=== PATIENT | male | born 1970 | race Caucasian/White ===

== ENCOUNTER 2017-06-13 14:45 | Emergency (ER) | payer OTHER ==
[~2017-06-13] VITALS: Ht 175.3 cm; Wt 99.8 kg
[2017-06-13 17:24] LABS: ABSOLUTE BASOPHIL COUNT 0 /CUMM (0.0-0.2); ABSOLUTE EOSINOPHIL COUNT 0.1 /CUMM (0.0-0.7); ABSOLUTE LYMPH COUNT 2.5 /CUMM (1.2-3.4); ABSOLUTE MONOCYTE COUNT 0.4 /CUMM (0.10-0.60); BASOPHIL % 0.5 % (0.0-2.0); EOSINOPHIL % 1.3 % (0-5); GRANULOCYTE % 65.8 % (42.2-75.2); HEMATOCRIT 47.3 % (42-52); MEAN CORPUSCULAR HGB 29.3 PG (27.0-31.0); MEAN CORPUSCULAR HGB CONC 33.4 G/DL (33.0-37.0); MEAN CORPUSCULAR VOLUME 87.6 FL (80.0-94.0); MEAN PLATELET VOLUME 8.5 FL (7.4-10.4); PLATELET COUNT 243 /CUMM (130-400); RBC DISTRIBUTION WIDTH 13.6 % (11.5-14.5); RED BLOOD CELL CT 5.41 /CUMM (4.70-6.10); WHITE BLOOD CELL COUNT 9.1 /CUMM (4.8-10.8)
[2017-06-13 17:32] LABS: PTT 28 SEC (25-37)
--- NOTE | 2017-06-13 18:30 | RADIOLOGY REPORT ---
EXAMINATION: XR CHEST CLINICAL INFORMATION: Chest tightness. COMPARISON: Chest radiograph 06/05/2013. TECHNIQUE: 2 views of the chest were obtained. FINDINGS: Lung volumes are low. No focal consolidative disease, pleural effusion, or pneumothorax. The cardiac silhouette and upper mediastinal contours are normal. No acute osseous finding. IMPRESSION: Low lung volumes. Otherwise unremarkable examination. No consolidative disease or effusion.
--- NOTE | 2017-06-13 20:00 | ED CARDIAC/CP/PALPITATIONS ---
History of Present Illness General Chief Complaint: Chest Pain Stated Complaint: CHEST TIGHTNESS W/ NUMBNESS/TINGLING TO LEFT HAND Source: patient Exam Limitations: no limitations Vital Signs & Intake/Output Vital Signs & Intake/Output Vital Signs Date Time Temp Pulse Resp B/P B/P Pulse O2 O2 Flow FiO2 Mean Ox Delivery Rate 06/13 2104 98.4 83 18 148/87 98 Room Air 06/13 2052 Room Air 06/13 1454 98.7 80 20 157/92 99 Room Air Allergies Coded Allergies: NO KNOWN ALLERGIES (06/05/13) Reconcile Medications No Known Home Medications Triage Note: PT STATES HIS LEFT HAND FELT KENISHA ALL DAY. HE LAYED DOWN FOR A WHILE AND WHEN HE GOT UP HE FELT A PAIN IN NECK AND HIS CHEST GOT TIGHT AND THE TINGLING GOT WORSE IN HIS HAND Triage Nurses Notes Reviewed? yes Onset: Abrupt Duration: hour(s):, constant, continues in ED Timing: recent history Quality/Severity: moderate Radiation: shoulders Activities at Onset: none HPI: 47-year-old male comes into the emergency room for further evaluation of some left-sided neck pain that radiates down to his left hand with some associated tingling. He reports that he woke up with it from his sleep. He denies any chest pain or shortness of breath. He reports that the symptoms have improved and resolved by time he hears the emergency room. Currently denies any chest pain or shortness of breath. Denies any prior cardiac history. He reports that he has a history of hypertension and hyperlipidemia. His father and grandfather had MIs in their 60s. (Tanner Neely) Past History Travel History Traveled to [place] past 21 day No Medical History Any Pertinent Medical History? see below for history Cardiovascular: hypertension, hyperlipidemia Renal: KIDNEY STONES Surgical History Surgical History: none Psychosocial History What is your primary language Iranian Tobacco Use: Never used ETOH Use: occasional use Illicit Drug Use: denies illicit drug use Family History Hx Contributory? No (Tanner Neely) Review of Systems Review of Systems Constitutional: Reports: no symptoms. EENTM: Reports: no symptoms. Respiratory: Reports: no symptoms. Cardiovascular: Reports: no symptoms. GI: Reports: no symptoms. Genitourinary: Reports: no symptoms. Musculoskeletal: Reports: see HPI. Skin: Reports: no symptoms. Neurological/Psychological: Reports: see HPI. Hematologic/Endocrine: Reports: no symptoms. Immunologic/Allergic: Reports: no symptoms. All Other Systems: Reviewed and Negative (Tanner Neely) Physical Exam Physical Exam General Appearance: well developed/nourished, no apparent distress, alert, awake Head: atraumatic, normal appearance Eyes: Bilateral: normal appearance, EOMI. Ears, Nose, Throat: normal ENT inspection, hearing grossly normal Neck: normal inspection, supple, full range of motion Respiratory: normal breath sounds, no respiratory distress Cardiovascular: regular rate/rhythm Gastrointestinal: soft, non-tender Back: normal inspection Extremities: normal inspection Neurologic/Psych: awake, alert, oriented x 3, normal gait, normal mood/affect Skin: intact, normal color Core Measures ACS in differential dx? Yes CVA/TIA Diagnosis No Sepsis Present: No Sepsis Focused Exam Completed? No (Tanner Neely) Progress Differential Diagnosis: AMI, aortic dissection, costochondritis, hyperthyroid, musculoskeletal pain, pancreatitis, pericarditis, pneumonia, pneumothorax, pulmonary embolism, PUD/GERD, respiratory failure, rib fracture, unstable angina Plan of Care: Orders Procedure Date/time Status TROPONIN LEVEL 06/13 2014 Complete EKG 06/13 2014 Active TROPONIN LEVEL 06/13 1501 Complete PARTIAL THROMBOPLASTIN TIME 06/13 1501 Complete PROTHROMBIN TIME 06/13 1501 Complete COMPREHENSIVE METABOLIC PANEL 06/13 1501 Complete CHOLESTEROL 06/13 1501 Complete CBC WITHOUT DIFFERENTIAL 06/13 1501 Complete B-TYPE NATRIURETIC PEP (BNP) 06/13 1501 Complete EKG 06/13 1446 Active Laboratory Tests 06/13/17 2018: Troponin I < 0.01 06/13/17 1711: Anion Gap 12, Estimated GFR > 60, BUN/Creatinine Ratio 15.0, Glucose 94, Calcium 10.1, Total Bilirubin 0.6, AST 29, ALT 94 H, Alkaline Phosphatase 82, Troponin I < 0.01, Uau-G-Riksstfdhat Pept 14.3, Total Protein 8.4 H, Albumin 4.7, Globulin 3.7, Albumin/Globulin Ratio 1.3, Cholesterol 236 H, PT 11.0, INR 1.05, APTT 28, CBC w Diff NO MAN DIFF REQ, RBC 5.41, MCV 87.6, MCH 29.3, MCHC 33.4, RDW 13.6, MPV 8.5, Gran % 65.8, Lymphocytes % 27.5, Monocytes % 4.9, Eosinophils % 1.3, Basophils % 0.5, Absolute Granulocytes 6.0, Absolute Lymphocytes 2.5, Absolute Monocytes 0.4, Absolute Eosinophils 0.1, Absolute Basophils 0 Diagnostic Imaging: Viewed by Me: Radiology Read. Discussed w/RAD: Radiology Read. Radiology Impression: PATIENT: JUAN CRAIN PRESENT AGE: 47 PATIENT ACCOUNT NO: [id number] : 71 LOCATION: [facility] ORDERING PHYSICIAN: Tanner LEE SERVICE DATE: 06/13/17 EXAM TYPE : RAD - XRY-CHEST XRAY, TWO VIEWS EXAMINATION: XR CHEST CLINICAL INFORMATION: Chest tightness. COMPARISON: Chest radiograph 06/05/2013. TECHNIQUE: 2 views of the chest were obtained. FINDINGS: Lung volumes are low. No focal consolidative disease, pleural effusion, or pneumothorax. The cardiac silhouette and upper mediastinal contours are normal. No acute osseous finding. IMPRESSION: Low lung volumes. Otherwise unremarkable examination. No consolidative disease or effusion. DICTATED BY: Gustavo Orozco MD DATE/TIME DICTATED:06/13/171825 PHOTOGRAMMETRIC ENGINEER:CASSIE DATE/TIME TRANSCRIBED:06/13/171825 CONFIDENTIAL, DO NOT COPY WITHOUT APPROPRIATE AUTHORIZATION. <Electronically signed in Other Vendor System> SIGNED BY: Gustavo Orozco MD 06/13/171829 Initial ED EKG: normal sinus rhythm, rate (88) Repeat EKG: unchanged (v1, v2 shows motion artifact) (Delonte LEE,Tanner) Departure Departure Disposition: HOME OR SELF CARE Condition: Stable Clinical Impression Primary Impression: Neck pain Secondary Impressions: Numbness and tingling in left hand Referrals: Trino JERONIMO,Janene Soto MD,Juan Walsh (PCP/Family) Additional Instructions: Follow-up with your primary care doctor and tonger for outpatient workup. Return immediately if any chest pain difficulty breathing or any other concerns. Take ibuprofen 800 mg at home. Please go over all results of today's visit with your primary care doctor. Contact your primary care doctor to let them know you were here in the emergency room. There may be nonspecific findings which may not be related to your visit today here in the emergency room but may require further evaluation and chronic monitoring by your primary care doctor. If you had a laceration today the chance of foreign body always remains. You should follow-up with your primary care doctor for recheck in 3-5 days for a wound check. If you had an x-ray done there is a chance that a fracture could have been missed on initial read and you should follow-up with your primary care doctor for repeat x-rays if symptoms persist. If your blood pressure was elevated here in the emergency room please have rechecked by akbarour primary care doctor within the next 48. If you were prescribed a narcotic here in the emergency room or any type of controlled substances you're not allowed to drive while taking this medication or operate any type of heavy machinery. Narcotics can make you feel lightheaded dizziness nausea and can cause constipation. You may need to pick up attendant a stool softener. Thank you for choosing [facility] emergency room. Please return to the emergency room immediately if you have any other concerns worsening of symptoms. Departure Forms: Customer Survey General Discharge Information Prescriptions: Current Visit Scripts No Known Home Medications Comments 06/13/2017 9:41:43 PM Patient continued to remain asymptomatic. The neck pain appears to be worse with movement. He clinically looks well. He's had 2 normal troponins. He has had no chest pain. - perc score and low probability well's criteria. Symptoms are more likely consistent with cervical radiculopathy/musculoskeletal pain. He was recommended to follow up with cardiology as outpatient and his PCP. (Tanner Neely) PA/INTERNET MARKETING STRATEGIST Co-Sign Statement Statement: ED Attending supervision documentation- [] I saw and evaluated the patient. I have also reviewed all the pertinent lab results and diagnostic results. I agree with the findings and the plan of care as documented in the PA's/INTERNET MARKETING STRATEGIST's documentation. [X] I have reviewed the ED Record and agree with the PA's/INTERNET MARKETING STRATEGIST's documentation. [] Additions or exceptions (if any) to the PAs/INTERNET MARKETING STRATEGIST's note and plan are summarized below: [] (Valerie JERONIMO,Nito Cavazos) Critical Care Note Critical Care Note Critical Care Time: non-applicable (Tanner Neely)
[2017-06-13 21:05] VITALS: BP 148/87
== END 2017-06-13 21:27 ==
LOC: ERH 14:45
PROVIDERS: Physician Assistant
DX: M54.2 Cervicalgia (principal); R20.0 Anesthesia of skin; R07.89 Other chest pain
CPT/HCPCS: 71046; 93005; 93010